=== PATIENT | male | born 1985 | race Two or more races ===

== ENCOUNTER 2024-09-05 18:34 | Emergency (ER) | payer BC ==
[~2024-09-05] VITALS: Ht 182.9 cm; Wt 113.4 kg
[2024-09-05 18:45] VITALS: TEMP 98.1
[2024-09-05] MEDS: Morphine 4mg INJECTION 4 MG/ML INJ IM STA (19:38)
[2024-09-05] MEDS ORDERED: AUGMENTIN 500-1 EACH PO (19:56)
[2024-09-05 20:01] VITALS: PULSE 88; RESP 16; O2SAT 99
== END 2024-09-05 20:15 | disposition home or self-care (01) ==
LOC: ER 18:40
DX: I83.892 Varicose veins of left lower extremity with other complications (principal); I10 Essential (primary) hypertension; E11.9 Type 2 diabetes mellitus without complications
CPT/HCPCS: 35226; 99284; J2270